=== PATIENT | female | born 1965 | race Caucasian/White ===

== ENCOUNTER 2023-10-10 16:42 | Observation (INO) | payer MEDICARE, BC ==
--- NOTE | 2023-10-10 16:47 | ERPHSYRPT ---
<BERNADETTE AGUILAR - Last Filed: 10/10/23 18:43> - History of Present Illness Time Seen by Provider: 10/10/23 16:47 Historian: patient Exam Limitations: no limitations Physician History: This is an obese 58-year-old white female patient who has had intermittently sharp pain associated with constant pressure over the last week. Patient states that the pain occasionally radiates into her upper back neck and right jaw. The chest pain occurs at rest. She is an occasional smoker of cigarettes. She has never been diagnosed with coronary artery disease. She took a half of Percocet 5/325 at noon today. Patient has a history of hyperlipidemia, asthma and hypertension. Patient sees a weave room supervisor, Dr. Johnston, on 10/12/2023. Timing/Duration: week(s) (1) Activities at Onset: none, rest Quality: pressure, sharpness Location: substernal, central Chest Pain Radiation: jaw, neck, back Severity of Pain-Max: mild Severity of Pain-Current: mild Modifying Factors: Improves With: nothing Associated Symptoms: shortness of breath Prior Chest Pain/Cardiac Workup: no prior chest pain, no prior cardiac workup Nitro Today/Relief: no nitro taken today Aspirin Treatment Today: provided at home Allergies/Adverse Reactions: No Known Drug Allergies Allergy (Unverified 10/10/23 16:44) Home Medications: Albuterol 8 gm Mdi Hfa [Ventolin Hfa MDI] 2 puffs IH Q4HPRN PRN 10/10/23 [History] Amlodipine Besylate 5 mg [Norvasc 5 mg] 5 mg PO DAILY 10/10/23 [History] Atenolol 50 mg [Tenormin 50 mg] 50 mg PO DAILY 10/10/23 [History] Losartan Potassium 100 mg PO DAILY 10/10/23 [History] Oxycodone HCl/Acetaminophen [Oxycodone-Acetaminophen 5-325] 1 tab PO Q6HPRN PRN 10/10/23 [History] Pravastatin Sodium 10 mg PO HS 10/10/23 [History] hydroCHLOROthiazide [Hydrochlorothiazide] 12.5 mg PO DAILY 10/10/23 [History] Travel Risk - International Travel Have you traveled outside of the country in past 3 weeks: No - Coronavirus Screening Are you exhibiting any of the following symptoms?: No Close contact with a COVID-19 positive Pt in past 14-21 Days: No - Review of Systems Constitutional: No Symptoms Eyes: No Symptoms Ears, Nose, & Throat: No Symptoms Respiratory: No Symptoms Cardiac: Chest Pain Abdominal/Gastrointestinal: No Symptoms Genitourinary Symptoms: No Symptoms Musculoskeletal: No Symptoms Skin: No Symptoms Neurological: No Symptoms Psychological: No Symptoms Endocrine: No Symptoms Hematologic/Lymphatic: No Symptoms Immunological/Allergic: No Symptoms All Other Systems: Reviewed and Negative - Past Medical History Pertinent Past Medical History: Yes - Past Surgical History Past Surgical History: Yes - Physical Exam General Appearance: no apparent distress, alert, anxiety, obese Eye Exam: PERRL/EOMI, eyes nml inspection Ears, Nose, Throat Exam: normal ENT inspection, moist mucous membranes Neck Exam: normal inspection, non-tender, supple, full range of motion Respiratory Exam: normal breath sounds, chest tenderness, lungs clear, airway intact, No respiratory distress Cardiovascular Exam: regular rate/rhythm, normal heart sounds, normal peripheral pulses Gastrointestinal/Abdomen Exam: soft, normal bowel sounds, No tenderness Pelvic Exam: not done Rectal Exam: not done Back Exam: normal inspection, normal range of motion, No CVA tenderness Extremity Exam: normal inspection, normal range of motion, pelvis stable Neurologic Exam: alert, oriented x 3, cooperative, 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 I do not appreciate any ST elevation in any leads.) - Progress Progress: improved, re-examined Air Movement: good Progress Note: 10/10/23 17:44 This patient's medical issue is 1 of moderate complexity. Level complex in the workup performed is based on review of the patient's past medical history, review of the patient's medication list, review the patient's drug allergy list, history present illness and physical findings on examination. The workup in this patient includes placement of intravenous line, provide the patient with 81 mg oral aspirin x 2, nitroglycerin sublingually 0.4 mg x 1 twelve-lead EKG, troponin level, D-dimer level, CBC, CMP and chest x-ray. 10/10/23 18:43 This patient's care is being transferred to Dr. Shan Stovall at shift change. H e will follow-up with the workup results and make final disposition. Counseled pt/family regarding: lab results, diagnosis, need for follow-up, rad results - Departure Departure Disposition: Home Clinical Impression: Nonspecific chest pain, Hiatal hernia Condition: Stable Critical Care Time: No Referrals: ANGEL MCCORMICK MD [Primary Care Provider] - Follow up/PCP as directed <SHAN STOVALL - Last Filed: 10/10/23 21:46> - Nursing Vital Signs Nursing Vital Signs: Initial Vital Signs Temperature 98 F 10/10/23 16:43 Pulse Rate 65 10/10/23 16:43 Respiratory Rate 16 10/10/23 16:43 Blood Pressure 179/102 10/10/23 16:43 O2 Sat by Pulse Oximetry 98 10/10/23 16:43 Pain Scale Pain Intensity 7 - CT Exams Chest CT Interpretation: Tele-radiologist Report (Small hiatal hernia otherwise normal CT PE exam) Ordered Tests: Active Orders 24 hr Category Date Time Status Brake Operator Sheet Metal STAT Care 10/10/23 17:11 Active EKG-ER Only STAT Care 10/10/23 17:10 Active IV Insertion STAT Care 10/10/23 17:10 Active Pulse Oximetry (ED) STAT Care 10/10/23 17:10 Active CHEST 1 VIEW (PORTABLE) Stat Exams 10/10/23 17:11 Taken CHEST WITH CONTRAST [CT] Stat Exams 10/10/23 18:05 Taken CBC W DIFF Stat Lab 10/10/23 16:50 Completed CMP Stat Lab 10/10/23 16:50 Completed D-DIMER QUANTITATIVE Stat Lab 10/10/23 16:50 Completed TROPONIN Q4H Lab 10/10/23 16:50 Completed TROPONIN Q4H Lab 10/10/23 20:37 Completed TROPONIN Q4H Lab 10/11/23 01:15 Ordered Transfer Order Routine Transfer 10/10/23 Ordered Medication Summary Discontinued Medications Generic Name Dose Route Start Last Admin Trade Name Freq PRN Reason Stop Dose Admin Aspirin 162 mg 10/10/23 17:46 10/10/23 18:06 Aspirin 81 Mg Tab.Chew PO 10/10/23 17:47 162 mg STAT ONE Administration Aspirin Confirm 10/10/23 18:04 Aspirin 81 Mg Tab.Chew Administered 10/10/23 18:05 Dose 162 mg .ROUTE .STK-MED ONE Sodium Chloride 500 mls @ 500 mls/hr 10/10/23 17:49 10/10/23 19:18 Sodium Chloride 0.9% 500 Ml IV 10/10/23 18:48 Infused .Q1H ONE Infusion Sodium Chloride Confirm 10/10/23 18:05 Sodium Chloride 0.9% 500 Ml Administered 10/10/23 18:06 Dose 500 mls @ ud IV .STK-MED ONE Nitroglycerin 0.4 mg 10/10/23 17:46 10/10/23 18:06 Nitroglycerin 0.4 Mg (Ed) 0.4 Mg Tab.Subl SL 10/10/23 17:47 0.4 mg STAT ONE Administration Nitroglycerin Confirm 10/10/23 18:04 Nitroglycerin 0.4 Mg (Ed) 0.4 Mg Tab.Subl Administered 10/10/23 18:05 Dose 0.4 mg SL .STK-MED ONE Nitroglycerin 1 gm 10/10/23 21:28 10/10/23 21:32 Nitroglycerin 1 Gm Packet TOP 10/10/23 21:29 1 gm STAT ONE Administration Nitroglycerin Confirm 10/10/23 21:32 Nitroglycerin 1 Gm Packet Administered 10/10/23 21:33 Dose 1 gm .ROUTE .STK-MED ONE Lab/Rad Data: Laboratory Result Diagrams 10/10/23 16:50 10/10/23 16:50 Laboratory Results 10/10/23 10/10/23 10/10/23 Range/Units 20:37 16:50 16:50 WBC (4.0-10.5) x10^3/uL RBC (4.1-5.4) x10^6/uL Hgb (12.0-16.0) g/dL Hct (35-47) % MCV (78-100) fL MCH (26-32) pg MCHC (32-36) g/dL RDW (11.5-14.0) % Plt Count (150-450) x10^3/uL MPV (7.5-11.0) fL Gran % (36.0-66.0) % Immature Gran % (Auto) (0.00-0.4) % Nucleat RBC Rel Count (0.00-0.1) % Eos # (Auto) (0-0.5) x10^3/uL Immature Gran # (Auto) (0.00-0.03) x10^3u/L Absolute Lymphs (auto) (1.0-4.6) x10^3/uL Absolute Monos (auto) (0.0-1.3) x10^3/uL Absolute Nucleated RBC (0.00-0.01) x10^3u/L Lymphocytes % (24.0-44.0) % Monocytes % (0.0-12.0) % Eosinophils % (0.00-5.0) % Basophils % (0.0-0.4) % Absolute Granulocytes (1.4-6.9) x10^3/uL Basophils # (0-0.4) x10^3/uL D-Dimer 0.58 H (0.0-0.50) mg/L Sodium (137-145) mmol/L Potassium (3.5-5.1) mmol/L Chloride (98-107) mmol/L Carbon Dioxide (22-30) mmol/L Anion Gap (5-15) MEQ/L BUN (7-17) mg/dL Creatinine (0.52-1.04) mg/dL Estimated GFR ML/MIN Glucose (74-106) mg/dL Calcium (8.4-10.2) mg/dL Total Bilirubin (0.2-1.3) mg/dL AST (14-36) U/L ALT (0-35) U/L Alkaline Phosphatase (38-126) U/L Troponin I < 0.012 < 0.012 (0.000-0.034) ng/mL Serum Total Protein (6.3-8.2) g/dL Albumin (3.5-5.0) g/dL 10/10/23 10/10/23 Range/Units 16:50 16:50 WBC 9.9 (4.0-10.5) x10^3/uL RBC 5.25 (4.1-5.4) x10^6/uL Hgb 14.1 (12.0-16.0) g/dL Hct 43.5 (35-47) % MCV 82.9 (78-100) fL MCH 26.9 (26-32) pg MCHC 32.4 (32-36) g/dL RDW 13.5 (11.5-14.0) % Plt Count 304 (150-450) x10^3/uL MPV 10.2 (7.5-11.0) fL Gran % 55.1 (36.0-66.0) % Immature Gran % (Auto) 0.2 (0.00-0.4) % Nucleat RBC Rel Count 0.0 (0.00-0.1) % Eos # (Auto) 0.19 (0-0.5) x10^3/uL Immature Gran # (Auto) 0.02 (0.00-0.03) x10^3u/L Absolute Lymphs (auto) 3.53 (1.0-4.6) x10^3/uL Absolute Monos (auto) 0.67 (0.0-1.3) x10^3/uL Absolute Nucleated RBC 0.00 (0.00-0.01) x10^3u/L Lymphocytes % 35.5 (24.0-44.0) % Monocytes % 6.7 (0.0-12.0) % Eosinophils % 1.9 (0.00-5.0) % Basophils % 0.6 (0.0-0.4) % Absolute Granulocytes 5.46 (1.4-6.9) x10^3/uL Basophils # 0.06 (0-0.4) x10^3/uL D-Dimer (0.0-0.50) mg/L Sodium 138 (137-145) mmol/L Potassium 3.8 (3.5-5.1) mmol/L Chloride 102 (98-107) mmol/L Carbon Dioxide 28 (22-30) mmol/L Anion Gap 11.7 (5-15) MEQ/L BUN 17 (7-17) mg/dL Creatinine 0.57 (0.52-1.04) mg/dL Estimated GFR 105.9 ML/MIN Glucose 121 H (74-106) mg/dL Calcium 10.6 H (8.4-10.2) mg/dL Total Bilirubin 0.30 (0.2-1.3) mg/dL AST 29 (14-36) U/L ALT 22 (0-35) U/L Alkaline Phosphatase 111 (38-126) U/L Troponin I (0.000-0.034) ng/mL Serum Total Protein 8.5 H (6.3-8.2) g/dL Albumin 4.5 (3.5-5.0) g/dL - Progress Progress Note: Patient endorsed to Dr. Stovall at approximately 7 PM. Troponin negative x 2. Patient reassessed. Patient continues to experience some chest discomfort with pain radiating to the right ear. Patient's heart score is a 4. We will admit for cardiac rule out. Case discussed with Dr. brown at 9:30 PM. Hospitalist accepts admission to observation. Plan of care discussed with patient. She agrees to admission at [facility] for further evaluation and treatment. Portions of this note were created with voice recognition technology. There may be grammatical, spelling, punctuation or sound alike errors 10/10/23 21:36 Blood Culture(s) Obtained: No Antibiotics given: No
[2023-10-10 17:15] LABS: Absolute Neutrophil Ct (ANC) 5.46 x10^3/uL (1.4-6.9); BASOPHIL % 0.6 % (0.0-0.4); Basophil (Absolute #) 0.06 x10^3/uL (0-0.4); Eosinophil % 1.9 % (0.00-5.0); Eosinophil (Absolute #) 0.19 x10^3/uL (0-0.5); Hematocrit 43.5 % (35-47); Hemoglobin 14.1 g/dL (12.0-16.0); IMMATURE GRAN # 0.02 x10^3u/L (0.00-0.03); IMMATURE GRAN % 0.2 % (0.00-0.4); Lymphocyte (Absolute #) 3.53 x10^3/uL (1.0-4.6); Lymphocytes % 35.5 % (24.0-44.0); Mean Cell Volume 82.9 fL (78-100); Mean Corpuscular Hemoglobin 26.9 pg (26-32); Mean Corpuscular Hgb Concent. 32.4 g/dL (32-36); Mean Platelet Volume 10.2 fL (7.5-11.0); Monocyte (Absolute #) 0.67 x10^3/uL (0.0-1.3); Monocytes % 6.7 % (0.0-12.0); Neutrophil % 55.1 % (36.0-66.0); Platelet Count 304 x10^3/uL (150-450); Red Blood Count 5.25 x10^6/uL (4.1-5.4); Red Cell Distribution Width 13.5 % (11.5-14.0); White Blood Count 9.9 x10^3/uL (4.0-10.5)
[2023-10-10 17:22] LABS: ALBUMIN 4.5 g/dL (3.5-5.0); ANION GAP 11.7 MEQ/L (5-15); BILIRUBIN,TOTAL 0.3 mg/dL (0.2-1.3); Calcium 10.6 mg/dL (8.4-10.2); Creatinine 1 0.57 mg/dL (0.52-1.04); EST GLOMERULAR FILTRATION RATE 105.9 ML/MIN; Potassium 3.8 mmol/L (3.5-5.1); Total Protein 8.5 g/dL (6.3-8.2)
[2023-10-10] MEDS ORDERED: BABY ASPIRIN 81 MG CHEW PO ONE (17:46)
[2023-10-10] MEDS ORDERED: Nitrostat 0.4 MG (ED) SL ONE ×2 (17:46→18:04)
[2023-10-10] MEDS ORDERED: Sodium Chloride 0.9% 500 ML 500 ML IV ONE ×2 (17:49→18:05)
[2023-10-10] MEDS ORDERED: BABY ASPIRIN 81 MG CHEW ONE (18:04)
[2023-10-10] MEDS ORDERED: NITRO-BID 2% UD PACKETS TOP ONE (21:28)
[2023-10-10] MEDS ORDERED: NITRO-BID 2% UD PACKETS ONE (21:32)
[2023-10-10] MEDS ORDERED: PERCOCET TABLET 5/325MG PO PRN (22:42)
[2023-10-10] MEDS ORDERED: Ventolin Hfa MDI IH PRN (22:42)
[2023-10-10] MEDS ORDERED: VENTOLIN COMMON CANISTER IH PRN (22:47)
[2023-10-10] MEDS ORDERED: Zofran 4 MG/2 ML VIAL IV PRN (22:51)
[2023-10-10] MEDS ORDERED: Docusate Sodium 100 MG PO PRN (22:51)
[2023-10-10] MEDS ORDERED: TYLENOL 325 MG PO PRN (22:51)
--- NOTE | 2023-10-10 22:59 | PCM.HP ---
History of Present Illness - Chief Complaint Chief Complaint: ACS, Chest pain Date: 10/10/23 History of Present Illness: is a 58 year old female with a history of HTN, asthma, and hyperlipidemia who has had intermittently sharp pain associated with constant pressure over the last week, with periodic radiation into her upper back neck and right jaw. The chest pain occurs at rest and is not reliably associated with exertion. Joshua has never been diagnosed with coronary artery disease and will have her first appointment with a transformation architect, Dr. Johnston, on 10/12/2023. She has not had a cardiac stress test in the last few years. She denies any leg edema, calf tenderness, or recent travel. - Review of Systems Constitutional: No Symptoms Eyes: No Symptoms Ears, Nose, & Throat: No Symptoms Respiratory: No Symptoms Cardiac: Chest Pain Abdominal/Gastrointestinal: No Symptoms Genitourinary Symptoms: No Symptoms Musculoskeletal: Arthralgias Skin: No Symptoms Neurological: No Symptoms Psychological: No Symptoms Endocrine: No Symptoms Hematologic/Lymphatic: No Symptoms Immunological/Allergic: No Symptoms All Other Systems: Reviewed and Negative Medications & Allergies Home Medications: Home Medication List Albuterol 8 gm Mdi Hfa [Ventolin Hfa MDI] 2 puffs IH Q4HPRN PRN 10/10/23 [History Confirmed 10/10/23] Amlodipine Besylate 5 mg [Norvasc 5 mg] 5 mg PO DAILY 10/10/23 [History Confirmed 10/10/23] Atenolol 50 mg [Tenormin 50 mg] 50 mg PO DAILY 10/10/23 [History Confirmed 10/10/23] Losartan Potassium 100 mg PO DAILY 10/10/23 [History Confirmed 10/10/23] Oxycodone HCl/Acetaminophen [Oxycodone-Acetaminophen 5-325] 1 tab PO Q6HPRN PRN 10/10/23 [History Confirmed 10/10/23] Pravastatin Sodium 10 mg PO HS 10/10/23 [History Confirmed 10/10/23] hydroCHLOROthiazide [Hydrochlorothiazide] 12.5 mg PO DAILY 10/10/23 [History Confirmed 10/10/23] Allergies/Adverse Reactions: Allergies Allergy/AdvReac Type Severity Reaction Status Date / Time No Known Drug Allergies Allergy Unverified 10/10/23 16:44 - Past Medical History Past Medical History: Yes Neurological History: No Pertinent History ENT History: No Pertinent History Cardiac History: High Cholesterol, Hypertension Respiratory History: Asthma Endocrine Medical History: No Pertinent History Musculoskelatal History: No Pertinent History GI Medical History: No Pertinent History History: No Pertinent History Pyscho-Social History: Bipolar Reproductive Disorders: No Pertinent History - Female History Are you now?: No - Past Surgical History Past Surgical History: Yes Neuro Surgical History: No Pertinent History Cardiac History: No Pertinent History Respiratory Surgery: No Pertinent History GI Surgical History: Appendectomy, Cholecystectomy Genitourinary Surgical Hx: No Pertinent History Musculskeletal Surgical Hx: Orthopedic Surgery Female Surgical History: Hysterectomy, Section Other Surgical History: left x2, right knee replacement - Social History Smoking Status: Current every day smoker Exposure to second hand smoke: Yes Alcohol: None Drug Use: none - Physical Exam Vital Signs: Vital Signs - 24 hr Temp Pulse Resp BP BP Pulse Ox 10/10/23 21:58 97.1 F 54 L 20 173/76 97 10/10/23 21:30 55 L 18 143/76 97 10/10/23 20:40 133/78 10/10/23 20:30 61 18 123/79 95 10/10/23 20:20 58 L 17 126/73 94 L 10/10/23 20:19 63 21 95 10/10/23 20:12 62 23 98 10/10/23 20:00 60 17 135/78 135/78 95 10/10/23 19:50 64 23 127/77 96 10/10/23 19:40 60 17 135/79 94 L 10/10/23 19:30 56 L 17 123/73 97 10/10/23 19:28 77 23 136/74 95 10/10/23 19:27 97 10/10/23 19:00 58 L 17 136/74 95 10/10/23 18:00 60 18 125/81 95 10/10/23 16:43 98 F 65 16 179/102 98 General Appearance: no apparent distress, alert Neurologic Exam: alert, oriented x 3, cooperative, 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, normal mood/affect, nml cerebellar function, nml station & gait Eye Exam: PERRL/EOMI, eyes nml inspection Ears, Nose, Throat Exam: normal ENT inspection Neck Exam: normal inspection, non-tender, supple, full range of motion Respiratory Exam: normal breath sounds, lungs clear Cardiovascular Exam: regular rate/rhythm, normal heart sounds Gastrointestinal/Abdomen Exam: soft, normal bowel sounds Back Exam: normal range of motion Extremity Exam: normal inspection, normal range of motion Skin Exam: normal color Results - Labs Lab/Micro Results: Lab Results-Last 24 Hours 10/10/23 10/10/23 10/10/23 Range/Units 16:50 16:50 16:50 WBC 9.9 (4.0-10.5) x10^3/uL RBC 5.25 (4.1-5.4) x10^6/uL Hgb 14.1 (12.0-16.0) g/dL Hct 43.5 (35-47) % MCV 82.9 (78-100) fL MCH 26.9 (26-32) pg MCHC 32.4 (32-36) g/dL RDW 13.5 (11.5-14.0) % Plt Count 304 (150-450) x10^3/uL MPV 10.2 (7.5-11.0) fL Gran % 55.1 (36.0-66.0) % Immature Gran % (Auto) 0.2 (0.00-0.4) % Nucleat RBC Rel Count 0.0 (0.00-0.1) % Eos # (Auto) 0.19 (0-0.5) x10^3/uL Immature Gran # (Auto) 0.02 (0.00-0.03) x10^3u/L Absolute Lymphs (auto) 3.53 (1.0-4.6) x10^3/uL Absolute Monos (auto) 0.67 (0.0-1.3) x10^3/uL Absolute Nucleated RBC 0.00 (0.00-0.01) x10^3u/L Lymphocytes % 35.5 (24.0-44.0) % Monocytes % 6.7 (0.0-12.0) % Eosinophils % 1.9 (0.00-5.0) % Basophils % 0.6 (0.0-0.4) % Absolute Granulocytes 5.46 (1.4-6.9) x10^3/uL Basophils # 0.06 (0-0.4) x10^3/uL D-Dimer 0.58 H (0.0-0.50) mg/L Sodium 138 (137-145) mmol/L Potassium 3.8 (3.5-5.1) mmol/L Chloride 102 (98-107) mmol/L Carbon Dioxide 28 (22-30) mmol/L Anion Gap 11.7 (5-15) MEQ/L BUN 17 (7-17) mg/dL Creatinine 0.57 (0.52-1.04) mg/dL Estimated GFR 105.9 ML/MIN Glucose 121 H (74-106) mg/dL Calcium 10.6 H (8.4-10.2) mg/dL Total Bilirubin 0.30 (0.2-1.3) mg/dL AST 29 (14-36) U/L ALT 22 (0-35) U/L Alkaline Phosphatase 111 (38-126) U/L Troponin I (0.000-0.034) ng/mL Serum Total Protein 8.5 H (6.3-8.2) g/dL Albumin 4.5 (3.5-5.0) g/dL 10/10/23 10/10/23 Range/Units 16:50 20:37 WBC (4.0-10.5) x10^3/uL RBC (4.1-5.4) x10^6/uL Hgb (12.0-16.0) g/dL Hct (35-47) % MCV (78-100) fL MCH (26-32) pg MCHC (32-36) g/dL RDW (11.5-14.0) % Plt Count (150-450) x10^3/uL MPV (7.5-11.0) fL Gran % (36.0-66.0) % Immature Gran % (Auto) (0.00-0.4) % Nucleat RBC Rel Count (0.00-0.1) % Eos # (Auto) (0-0.5) x10^3/uL Immature Gran # (Auto) (0.00-0.03) x10^3u/L Absolute Lymphs (auto) (1.0-4.6) x10^3/uL Absolute Monos (auto) (0.0-1.3) x10^3/uL Absolute Nucleated RBC (0.00-0.01) x10^3u/L Lymphocytes % (24.0-44.0) % Monocytes % (0.0-12.0) % Eosinophils % (0.00-5.0) % Basophils % (0.0-0.4) % Absolute Granulocytes (1.4-6.9) x10^3/uL Basophils # (0-0.4) x10^3/uL D-Dimer (0.0-0.50) mg/L Sodium (137-145) mmol/L Potassium (3.5-5.1) mmol/L Chloride (98-107) mmol/L Carbon Dioxide (22-30) mmol/L Anion Gap (5-15) MEQ/L BUN (7-17) mg/dL Creatinine (0.52-1.04) mg/dL Estimated GFR ML/MIN Glucose (74-106) mg/dL Calcium (8.4-10.2) mg/dL Total Bilirubin (0.2-1.3) mg/dL AST (14-36) U/L ALT (0-35) U/L Alkaline Phosphatase (38-126) U/L Troponin I < 0.012 < 0.012 (0.000-0.034) ng/mL Serum Total Protein (6.3-8.2) g/dL Albumin (3.5-5.0) g/dL - Radiology Impressions Radiology Exams & Impressions: Radiology Procedures Category Date Time Status CHEST 1 VIEW (PORTABLE) Stat Exams 10/10/23 17:11 Taken CHEST WITH CONTRAST [CT] Stat Exams 10/10/23 18:05 Taken Assessment/Plan (1) Nonspecific chest pain Current Visit: Yes Status: Acute Assessment & Plan: Serial enzymes on tele. Reports palpitations but no events on monitor or on EKG tracing. Has appointment with cardiology; would benefit from consideration of cardiac stress test due to risk factors. Will check TSH and Mag due to report of palpitations. Code(s): R07.9 - CHEST PAIN, UNSPECIFIED (2) Hypertension Current Visit: Yes Status: Acute Assessment & Plan: Continue home regimen and monitor BP trend. Code(s): I10 - ESSENTIAL (PRIMARY) HYPERTENSION (3) Hypercalcemia Current Visit: Yes Status: Acute Assessment & Plan: Reviewed previous available calcium levels on record here and they have all been normal. Mildly elevated. Recheck in AM. If elevated, could check ionized calcium. Further workup and monitoring as indicated. Code(s): E83.52 - HYPERCALCEMIA Telemedicine Encounter - Telemedicine Encounter Telemedicine Encounter: The entirety of this encounter was performed via Telemedicine"
[2023-10-10] MEDS ORDERED: Zocor 10MG ONE (23:01)
[2023-10-10] MEDS ORDERED: Zocor 10MG PO SCH ×2 (23:05→23:12)
[2023-10-11 02:28] LABS: ANION GAP 13.4 MEQ/L (5-15); Calcium 9.6 mg/dL (8.4-10.2); Creatinine 1 0.52 mg/dL (0.52-1.04); EST GLOMERULAR FILTRATION RATE 108.3 ML/MIN; Potassium 3.8 mmol/L (3.5-5.1)
[2023-10-11 03:36] LABS: Risk Ratio 6.6; TSH, 3RD Generation 1.3 mIU/L (0.47-4.68)
[2023-10-11 07:40] LABS: Hematocrit 41.6 % (35-47); Hemoglobin 13.1 g/dL (12.0-16.0); Mean Cell Volume 84.4 fL (78-100); Mean Corpuscular Hemoglobin 26.6 pg (26-32); Mean Corpuscular Hgb Concent. 31.5 g/dL (32-36); Mean Platelet Volume 10.8 fL (7.5-11.0); Platelet Count 292 x10^3/uL (150-450); Red Blood Count 4.93 x10^6/uL (4.1-5.4); Red Cell Distribution Width 13.8 % (11.5-14.0); White Blood Count 10.3 x10^3/uL (4.0-10.5)
--- NOTE | 2023-10-11 08:49 | XRAY ---
Indication: Chest pain. Elevated d-dimer. Multiple contiguous axial images obtained through the chest using 80 cc Isovue 370 contrast and PE protocol. Comparison: None Good opacification of the pulmonary arteries to include the lobar and segmental branches. No pulmonary embolus. Heart not enlarged. Aorta is normal in course and caliber. A few small left hilar calcified nodes. No pathologic mediastinal/hilar lymphadenopathy. Small hiatal hernia. Lungs hyperinflated with a few tiny left lung calcified granulomas. No suspicious pulmonary mass/nodule, infiltrate, effusion, or pneumothorax. Bony thorax intact with minimal degenerative changes throughout the spine. Also small T6/T7 Schmorl nodes. Limited upper abdomen demonstrates subcentimeter left lobe hepatic hemangioma and cholecystectomy clips. Impression: 1. Negative pulmonary embolus. No acute cardiopulmonary abnormalities. 2. Chronic findings including hiatal hernia, hepatic hemangioma, chronic bony findings, and old granulomatous disease.
--- NOTE | 2023-10-11 08:49 | XRAY ---
Indication: Chest pain. Comparison: None Portable chest demonstrates normal heart and lungs with a few left lung calcified granulomas. Bony thorax intact with osteopenia. Impression: Nonacute chest with chronic features.
--- NOTE | 2023-10-11 09:12 | PCM.NOTE ---
Date and Time: 10/11/2307 Subjective Assessment: is a 58 year old female with a history of HTN, asthma, and hyperlipidemia. She has had intermittently sharp pain associated with constant pressure over the last week, with periodic radiation into her upper back, neck, and right jaw. The chest pain occurs at rest and is not reliably associated with exertion. She has never been diagnosed with coronary artery disease and will have her first appointment with a high density press laborer, Dr. Johnston, on 10/12/2023. She has not had a cardiac stress test or echo in the last few years. She denies any leg edema, calf tenderness, or recent travel. D-dimer slightly elevated at 0.58 CT negative for PE. Chest XR shows hital hernia. Triglycerides elevated and fenofibrate started. She continues to have CP today in mid chest, worse with inspiration and activity. Pain continues to radiates into her neck, jaw, head, and back. Trop x3 negative. Echo and carotid US ordered for further evaluation. Cardiology consulted. She denies SOB, abd. pain, N/V/D. - Review of Systems Constitutional: No Fever, No Chills Eyes: No Symptoms Ears, Nose, & Throat: No Symptoms Respiratory: No Cough, No Short Of Breath Cardiac: Chest Pain, No Edema, No Syncope Abdominal/Gastrointestinal: No Abdominal Pain, No Nausea, No Vomiting, No Diarrhea Genitourinary Symptoms: No Dysuria Musculoskeletal: No Back Pain, No Neck Pain Skin: No Rash Neurological: No Dizziness, No Focal Weakness, No Sensory Changes Psychological: No Symptoms Endocrine: No Symptoms Hematologic/Lymphatic: No Symptoms Immunological/Allergic: No Symptoms Objective Exam General Appearance: no apparent distress, alert Neurologic Exam: alert, oriented x 3, cooperative, normal mood/affect, nml cerebellar function, sensation nml, No motor deficits Skin Exam: normal color, warm, dry Eye Exam: PERRL, EOMI, eyes nml inspection Ears, Nose, Throat Exam: normal ENT inspection, pharynx normal, moist mucous membranes Neck Exam: normal inspection, non-tender, supple, full range of motion Respiratory Exam: normal breath sounds, lungs clear, No respiratory distress Cardiovascular Exam: regular rate/rhythm, normal heart sounds Gastrointestinal/Abdomen Exam: soft, No tenderness, No mass Extremity Exam: normal inspection, normal range of motion Back Exam: normal inspection, normal range of motion, No CVA tenderness, No vertebral tenderness Pelvic Exam: deferred Rectal Exam: deferred OBJECTIVE DATA Vital Signs: Vital Signs - 24 hr Temp Pulse Resp BP BP Pulse Ox 10/11/23 07:09 50 L 14 94 L 10/11/23 06:53 98.7 F 56 L 16 142/80 96 10/11/23 04:00 97.8 F 52 L 18 129/70 97 10/11/23 00:48 51 L 16 94 L 10/10/23 23:03 97.6 F 54 L 20 124/70 96 10/10/23 21:58 97.1 F 54 L 20 173/76 97 10/10/23 21:30 55 L 18 143/76 97 10/10/23 20:40 133/78 10/10/23 20:30 61 18 123/79 95 10/10/23 20:20 58 L 17 126/73 94 L 10/10/23 20:19 63 21 95 10/10/23 20:12 62 23 98 10/10/23 20:00 60 17 135/78 135/78 95 10/10/23 19:50 64 23 127/77 96 10/10/23 19:40 60 17 135/79 94 L 10/10/23 19:30 56 L 17 123/73 97 10/10/23 19:28 77 23 136/74 95 10/10/23 19:27 97 10/10/23 19:00 58 L 17 136/74 95 10/10/23 18:00 60 18 125/81 95 10/10/23 16:43 98 F 65 16 179/102 98 Pain Assessment - Last Documented Pain Intensity 4 Pain Scale Used 0-10 Pain Scale Intake and Output: Intake & Output 10/08/23 10/09/23 10/10/23 10/11/23 11:59 11:59 11:59 11:59 Intake Total 400 Balance 400 Weight 91.3 kg Lab Results: Lab Results-Last 24 Hours 10/10/23 10/10/23 10/10/23 Range/Units 16:50 16:50 16:50 WBC 9.9 (4.0-10.5) x10^3/uL RBC 5.25 (4.1-5.4) x10^6/uL Hgb 14.1 (12.0-16.0) g/dL Hct 43.5 (35-47) % MCV 82.9 (78-100) fL MCH 26.9 (26-32) pg MCHC 32.4 (32-36) g/dL RDW 13.5 (11.5-14.0) % Plt Count 304 (150-450) x10^3/uL MPV 10.2 (7.5-11.0) fL Gran % 55.1 (36.0-66.0) % Immature Gran % (Auto) 0.2 (0.00-0.4) % Nucleat RBC Rel Count 0.0 (0.00-0.1) % Eos # (Auto) 0.19 (0-0.5) x10^3/uL Immature Gran # (Auto) 0.02 (0.00-0.03) x10^3u/L Absolute Lymphs (auto) 3.53 (1.0-4.6) x10^3/uL Absolute Monos (auto) 0.67 (0.0-1.3) x10^3/uL Absolute Nucleated RBC 0.00 (0.00-0.01) x10^3u/L Lymphocytes % 35.5 (24.0-44.0) % Monocytes % 6.7 (0.0-12.0) % Eosinophils % 1.9 (0.00-5.0) % Basophils % 0.6 (0.0-0.4) % Absolute Granulocytes 5.46 (1.4-6.9) x10^3/uL Basophils # 0.06 (0-0.4) x10^3/uL D-Dimer 0.58 H (0.0-0.50) mg/L Sodium 138 (137-145) mmol/L Potassium 3.8 (3.5-5.1) mmol/L Chloride 102 (98-107) mmol/L Carbon Dioxide 28 (22-30) mmol/L Anion Gap 11.7 (5-15) MEQ/L BUN 17 (7-17) mg/dL Creatinine 0.57 (0.52-1.04) mg/dL Estimated GFR 105.9 ML/MIN Glucose 121 H (74-106) mg/dL Hemoglobin A1c (4.5-6.0) % Calcium 10.6 H (8.4-10.2) mg/dL Magnesium (1.6-2.3) mg/dL Total Bilirubin 0.30 (0.2-1.3) mg/dL AST 29 (14-36) U/L ALT 22 (0-35) U/L Alkaline Phosphatase 111 (38-126) U/L Troponin I (0.000-0.034) ng/mL Serum Total Protein 8.5 H (6.3-8.2) g/dL Albumin 4.5 (3.5-5.0) g/dL Triglycerides (30-150) mg/dL Cholesterol (50-200) mg/dL LDL Cholesterol (30-100) mg/dL HDL Cholesterol (40-60) mg/dL Heart Disease Risk Ratio TSH 3rd Generation (0.47-4.68) mIU/L 10/10/23 10/10/23 10/11/23 Range/Units 16:50 20:37 02:11 WBC (4.0-10.5) x10^3/uL RBC (4.1-5.4) x10^6/uL Hgb (12.0-16.0) g/dL Hct (35-47) % MCV (78-100) fL MCH (26-32) pg MCHC (32-36) g/dL RDW (11.5-14.0) % Plt Count (150-450) x10^3/uL MPV (7.5-11.0) fL Gran % (36.0-66.0) % Immature Gran % (Auto) (0.00-0.4) % Nucleat RBC Rel Count (0.00-0.1) % Eos # (Auto) (0-0.5) x10^3/uL Immature Gran # (Auto) (0.00-0.03) x10^3u/L Absolute Lymphs (auto) (1.0-4.6) x10^3/uL Absolute Monos (auto) (0.0-1.3) x10^3/uL Absolute Nucleated RBC (0.00-0.01) x10^3u/L Lymphocytes % (24.0-44.0) % Monocytes % (0.0-12.0) % Eosinophils % (0.00-5.0) % Basophils % (0.0-0.4) % Absolute Granulocytes (1.4-6.9) x10^3/uL Basophils # (0-0.4) x10^3/uL D-Dimer (0.0-0.50) mg/L Sodium (137-145) mmol/L Potassium (3.5-5.1) mmol/L Chloride (98-107) mmol/L Carbon Dioxide (22-30) mmol/L Anion Gap (5-15) MEQ/L BUN (7-17) mg/dL Creatinine (0.52-1.04) mg/dL Estimated GFR ML/MIN Glucose (74-106) mg/dL Hemoglobin A1c (4.5-6.0) % Calcium (8.4-10.2) mg/dL Magnesium (1.6-2.3) mg/dL Total Bilirubin (0.2-1.3) mg/dL AST (14-36) U/L ALT (0-35) U/L Alkaline Phosphatase (38-126) U/L Troponin I < 0.012 < 0.012 < 0.012 (0.000-0.034) ng/mL Serum Total Protein (6.3-8.2) g/dL Albumin (3.5-5.0) g/dL Triglycerides (30-150) mg/dL Cholesterol (50-200) mg/dL LDL Cholesterol (30-100) mg/dL HDL Cholesterol (40-60) mg/dL Heart Disease Risk Ratio TSH 3rd Generation (0.47-4.68) mIU/L 10/11/23 10/11/23 10/11/23 Range/Units 02:11 02:11 02:11 WBC (4.0-10.5) x10^3/uL RBC (4.1-5.4) x10^6/uL Hgb (12.0-16.0) g/dL Hct (35-47) % MCV (78-100) fL MCH (26-32) pg MCHC (32-36) g/dL RDW (11.5-14.0) % Plt Count (150-450) x10^3/uL MPV (7.5-11.0) fL Gran % (36.0-66.0) % Immature Gran % (Auto) (0.00-0.4) % Nucleat RBC Rel Count (0.00-0.1) % Eos # (Auto) (0-0.5) x10^3/uL Immature Gran # (Auto) (0.00-0.03) x10^3u/L Absolute Lymphs (auto) (1.0-4.6) x10^3/uL Absolute Monos (auto) (0.0-1.3) x10^3/uL Absolute Nucleated RBC (0.00-0.01) x10^3u/L Lymphocytes % (24.0-44.0) % Monocytes % (0.0-12.0) % Eosinophils % (0.00-5.0) % Basophils % (0.0-0.4) % Absolute Granulocytes (1.4-6.9) x10^3/uL Basophils # (0-0.4) x10^3/uL D-Dimer (0.0-0.50) mg/L Sodium 137 (137-145) mmol/L Potassium 3.8 (3.5-5.1) mmol/L Chloride 103 (98-107) mmol/L Carbon Dioxide 25 (22-30) mmol/L Anion Gap 13.4 (5-15) MEQ/L BUN 15 (7-17) mg/dL Creatinine 0.52 (0.52-1.04) mg/dL Estimated GFR 108.3 ML/MIN Glucose 111 H (74-106) mg/dL Hemoglobin A1c 5.76 (4.5-6.0) % Calcium 9.6 (8.4-10.2) mg/dL Magnesium 2.0 (1.6-2.3) mg/dL Total Bilirubin (0.2-1.3) mg/dL AST (14-36) U/L ALT (0-35) U/L Alkaline Phosphatase (38-126) U/L Troponin I (0.000-0.034) ng/mL Serum Total Protein (6.3-8.2) g/dL Albumin (3.5-5.0) g/dL Triglycerides 444 H (30-150) mg/dL Cholesterol 188 (50-200) mg/dL LDL Cholesterol 93 (30-100) mg/dL HDL Cholesterol 28 L (40-60) mg/dL Heart Disease Risk Ratio 6.6 TSH 3rd Generation 1.300 (0.47-4.68) mIU/L 10/11/23 Range/Units 02:11 WBC 10.3 (4.0-10.5) x10^3/uL RBC 4.93 (4.1-5.4) x10^6/uL Hgb 13.1 (12.0-16.0) g/dL Hct 41.6 (35-47) % MCV 84.4 (78-100) fL MCH 26.6 (26-32) pg MCHC 31.5 L (32-36) g/dL RDW 13.8 (11.5-14.0) % Plt Count 292 (150-450) x10^3/uL MPV 10.8 (7.5-11.0) fL Gran % (36.0-66.0) % Immature Gran % (Auto) (0.00-0.4) % Nucleat RBC Rel Count (0.00-0.1) % Eos # (Auto) (0-0.5) x10^3/uL Immature Gran # (Auto) (0.00-0.03) x10^3u/L Absolute Lymphs (auto) (1.0-4.6) x10^3/uL Absolute Monos (auto) (0.0-1.3) x10^3/uL Absolute Nucleated RBC (0.00-0.01) x10^3u/L Lymphocytes % (24.0-44.0) % Monocytes % (0.0-12.0) % Eosinophils % (0.00-5.0) % Basophils % (0.0-0.4) % Absolute Granulocytes (1.4-6.9) x10^3/uL Basophils # (0-0.4) x10^3/uL D-Dimer (0.0-0.50) mg/L Sodium (137-145) mmol/L Potassium (3.5-5.1) mmol/L Chloride (98-107) mmol/L Carbon Dioxide (22-30) mmol/L Anion Gap (5-15) MEQ/L BUN (7-17) mg/dL Creatinine (0.52-1.04) mg/dL Estimated GFR ML/MIN Glucose (74-106) mg/dL Hemoglobin A1c (4.5-6.0) % Calcium (8.4-10.2) mg/dL Magnesium (1.6-2.3) mg/dL Total Bilirubin (0.2-1.3) mg/dL AST (14-36) U/L ALT (0-35) U/L Alkaline Phosphatase (38-126) U/L Troponin I (0.000-0.034) ng/mL Serum Total Protein (6.3-8.2) g/dL Albumin (3.5-5.0) g/dL Triglycerides (30-150) mg/dL Cholesterol (50-200) mg/dL LDL Cholesterol (30-100) mg/dL HDL Cholesterol (40-60) mg/dL Heart Disease Risk Ratio TSH 3rd Generation (0.47-4.68) mIU/L Radiology Exams: Radiology Procedures Category Date Time Status CAROTID BILATERAL [US] Routine Exams 10/11/23 08:47 Ordered CHEST 1 VIEW (PORTABLE) Stat Exams 10/10/23 17:11 Completed CHEST WITH CONTRAST [CT] Stat Exams 10/10/23 18:05 Completed ECHO W/2D AND DOPPLER [US] Routine Exams 10/11/23 08:47 Ordered Assessment/Plan (1) Nonspecific chest pain Current Visit: Yes Status: Acute Assessment & Plan: - Trop x3 negative - EKG's reviewed- some ST elevation and SR withy left ventricular hypertrophy seen in ER 1st EKG, 2nd repeat EKG showed no ST elevation but continued SR with left ventricular hypertrophy - Tele - TSH and Mg+ - WNL - Has an appointment with cardiology Sunday; would benefit from consideration of cardiac stress test due to risk factors. - Echo- pending - carotid duplex 10/11/23 Impression: Minimal right carotid arteriosclerotic plaquing. Widely patent left carotid circulation. Velocity measurements and ratios are negative for hemodynamically significant flow-limiting stenosis. - Pain increased with inspiration and activity - D- dimer 0.58- CT chest negative for PE - Chest XR negative except hital hernia - pantoprazole - ASA 81 mg daily - cardiology consult today - Consider tx to higher level of care. - pain improved with nitro in ER - no change in pain with nitro x1 today. Code(s): R07.9 - CHEST PAIN, UNSPECIFIED (2) Hiatal hernia Current Visit: Yes Status: Acute Assessment & Plan: - seen on XR and CT- chronic - may be causing sxs - Protonix Code(s): K44.9 - DIAPHRAGMATIC HERNIA WITHOUT OBSTRUCTION OR GANGRENE (3) Hypertension Current Visit: Yes Status: Acute Assessment & Plan: - stable - Cont home BP meds Code(s): I10 - ESSENTIAL (PRIMARY) HYPERTENSION (4) Hypercalcemia Current Visit: Yes Status: Acute Assessment & Plan: - resolved Code(s): E83.52 - HYPERCALCEMIA (5) Obesity (BMI 30-39.9) Current Visit: Yes Status: Acute Assessment & Plan: - advised heart healthy diet- discussed in detail since cholesterol is elevated - exercise control per cardiology recommendations Code(s): E66.9 - OBESITY, UNSPECIFIED (6) Mixed hyperlipidemia Current Visit: Yes Status: Acute Assessment & Plan: - Triglycerides 444 - HDL 28 - Continue Pravastatin - started Fenofibrate Code(s): E78.2 - MIXED HYPERLIPIDEMIA (7) Elevated d-dimer Current Visit: Yes Status: Acute Assessment & Plan: -D-Dimer 0.58 - CT with contrast negative for PE Code(s): R79.89 - OTHER SPECIFIED ABNORMAL FINDINGS OF BLOOD CHEMISTRY (8) Hepatic hemangioma Current Visit: Yes Status: Acute Assessment & Plan: - as seen on CT- chronic - F/u with PCP OP Code(s): D18.03 - HEMANGIOMA OF INTRA-ABDOMINAL STRUCTURES
[2023-10-11] MEDS ORDERED: NON-FORMULARY ITEM (Losartan Potassium [Losartan Potassium] 100 MG Tablet) PO SCH (10:00)
[2023-10-11] MEDS ORDERED: NON-FORMULARY ITEM (Hydrochlorothiazide [Hydrochlorothiazide] 12.5 MG Tablet) PO SCH (10:00)
[2023-10-11] MEDS ORDERED: hydroDIURIL 25 MG PO SCH (10:00)
[2023-10-11] MEDS ORDERED: ENOXAPARIN SODIUM SQ SCH (10:00)
[2023-10-11] MEDS ORDERED: NORVASC 5 MG PO SCH (10:00)
[2023-10-11] MEDS ORDERED: TENORMIN 50 MG PO SCH (10:00)
[2023-10-11] MEDS ORDERED: Protonix 40MG Tablet PO SCH (10:00)
[2023-10-11] MEDS ORDERED: Tricor 145 MG PO SCH (10:00)
[2023-10-11] MEDS ORDERED: ECOTRIN 81 MG PO SCH (10:00)
[2023-10-11] MEDS ORDERED: BABY ASPIRIN 81 MG CHEW PO SCH (10:00)
[2023-10-11] MEDS ORDERED: Ecotrin 325 MG PO SCH (10:00)
[2023-10-11] MEDS ORDERED: Cozaar 50 MG PO SCH (10:00)
--- NOTE | 2023-10-11 10:59 | XRAY ---
Indication: Chest pain. Two-dimensional sonogram and color Doppler imaging carotid arteries of the neck performed. Comparison: None Examination right carotid circulation demonstrates minimal calcified plaquing carotid bulb. Remaining common carotid, internal carotid, and external carotid arteries are widely patent. PSV CCA is 53 cm/s. PSV ICA is 60 cm/s. ICA/CCA ratio is 1.1. Normal antegrade vertebral artery flow. Examination left carotid circulation demonstrates widely patent common carotid, carotid bulb, internal carotid, and external carotid arteries. PSV CCA is 72 cm/s. PSV ICA is 85 cm/s. ICA/CCA ratio is 1.2. Normal antegrade vertebral artery flow. Impression: Minimal right carotid arteriosclerotic plaquing. Widely patent left carotid circulation. Velocity measurements and ratios are negative for hemodynamically significant flow-limiting stenosis.
[2023-10-11 11:04] VITALS: RESP 16
[2023-10-11] MEDS ORDERED: Nitrostat 0.4 MG Tablet SL PRN (11:19)
[2023-10-11 15:57] VITALS: BP 125/70; PULSE 54; TEMP 98.6; O2SAT 96
--- NOTE | 2023-10-11 17:05 | PCM.DS ---
Discharge Summary Date of Admission: 10/10/23 21:39 Date of Discharge: 10/11/23 Admitting Physician: SHRUTI RANKIN MD Consults: Consults on Case 10/11/23 11:16 Consult Cardiology ROUTINE Primary Care Provider: ANGEL MCCORMICK MD <SOLANGE ALAMO - Last Filed: 10/11/23 17:15> Date of Admission: 10/10/23 21:39 Date of Discharge: 10/11/23 Admitting Physician: SHRUTI RANKIN MD Consults: Consults on Case 10/11/23 11:16 Consult Cardiology ROUTINE Primary Care Provider: ANGEL MCCORMICK MD <YANA HENSON - Last Filed: 10/11/23 20:07> Allergies <SOLANGE ALAMO - Last Filed: 10/11/23 17:15> <YANA HENSON - Last Filed: 10/11/23 20:07> Allergies No Known Drug Allergies Allergy (Unverified 10/11/23 09:46) Hospital Summary - Hospital Course Hospital Course: is a 58 year old female with a history of HTN, asthma, and hyperlipidemia. She has had intermittently sharp pain associated with constant pressure over the last week, with periodic radiation into her upper back, neck, and right jaw. The chest pain occurs at rest and is not reliably associated with exertion. She has never been diagnosed with coronary artery disease and will have her first appointment with a bicycle repairer, Dr. Johnston, on 10/12/2023. She has not had a cardiac stress test or echo in the last few years. She denies any leg edema, calf tenderness, or recent travel. D-dimer slightly elevated at 0.58 CT negative for PE. Chest XR shows hital hernia. Triglycerides elevated and fenofibrate started. She continues to have CP today in mid chest, worse with inspiration and activity. Pain continues to radiates into her neck, jaw, head, and back. Trop x3 negative. Echo and carotid US ordered for further evaluation. Cardiology consulted and ok with discharge today and f/u in AM with cardiology as scheduled. Tele-cardiology recommends ASA 81mg daily a chemical stress test as pt is unable to participate in a treadmill test. She denies SOB, abd. pain, N/V/D. After discussion of meds with bicycle repairer she explained after the visit was over to the nurse Mauro that she had been taking OTC BC powder daily 4-5 times a day. BC powder has 845mg of ASA and 65mg of caffeine. I recommended she stop taking this medication as it may be causing her sxs. She may have some gastritis and may need an OP EGD if sxs continue. Will d/c with Protonix daily. She will need to also f/u with her PCP next week for further evaluation of her sxs. - Vitals & Intake/Output Vital Signs: Vital Signs Temperature 98.6 F 10/11/23 15:56 Pulse Rate 54 L 10/11/23 15:56 Respiratory Rate 16 10/11/23 15:56 Blood Pressure 125/70 10/11/23 15:56 O2 Sat by Pulse Oximetry 96 10/11/23 15:56 Intake & Output: Intake & Output 10/09/23 10/10/23 10/11/23 10/12/23 11:59 11:59 11:59 11:59 Intake Total 400 Balance 400 Weight 91.3 kg - Lab Result Diagrams: 10/11/23 02:11 10/11/23 02:11 Lab Results-Last 24 Hrs: Lab Results-Last 24 Hours 10/10/23 10/10/23 10/10/23 Range/Units 16:50 16:50 16:50 WBC 9.9 (4.0-10.5) x10^3/uL RBC 5.25 (4.1-5.4) x10^6/uL Hgb 14.1 (12.0-16.0) g/dL Hct 43.5 (35-47) % MCV 82.9 (78-100) fL MCH 26.9 (26-32) pg MCHC 32.4 (32-36) g/dL RDW 13.5 (11.5-14.0) % Plt Count 304 (150-450) x10^3/uL MPV 10.2 (7.5-11.0) fL Gran % 55.1 (36.0-66.0) % Immature Gran % (Auto) 0.2 (0.00-0.4) % Nucleat RBC Rel Count 0.0 (0.00-0.1) % Eos # (Auto) 0.19 (0-0.5) x10^3/uL Immature Gran # (Auto) 0.02 (0.00-0.03) x10^3u/L Absolute Lymphs (auto) 3.53 (1.0-4.6) x10^3/uL Absolute Monos (auto) 0.67 (0.0-1.3) x10^3/uL Absolute Nucleated RBC 0.00 (0.00-0.01) x10^3u/L Lymphocytes % 35.5 (24.0-44.0) % Monocytes % 6.7 (0.0-12.0) % Eosinophils % 1.9 (0.00-5.0) % Basophils % 0.6 (0.0-0.4) % Absolute Granulocytes 5.46 (1.4-6.9) x10^3/uL Basophils # 0.06 (0-0.4) x10^3/uL D-Dimer 0.58 H (0.0-0.50) mg/L Sodium 138 (137-145) mmol/L Potassium 3.8 (3.5-5.1) mmol/L Chloride 102 (98-107) mmol/L Carbon Dioxide 28 (22-30) mmol/L Anion Gap 11.7 (5-15) MEQ/L BUN 17 (7-17) mg/dL Creatinine 0.57 (0.52-1.04) mg/dL Estimated GFR 105.9 ML/MIN Glucose 121 H (74-106) mg/dL Hemoglobin A1c (4.5-6.0) % Calcium 10.6 H (8.4-10.2) mg/dL Magnesium (1.6-2.3) mg/dL Total Bilirubin 0.30 (0.2-1.3) mg/dL AST 29 (14-36) U/L ALT 22 (0-35) U/L Alkaline Phosphatase 111 (38-126) U/L Troponin I (0.000-0.034) ng/mL Serum Total Protein 8.5 H (6.3-8.2) g/dL Albumin 4.5 (3.5-5.0) g/dL Triglycerides (30-150) mg/dL Cholesterol (50-200) mg/dL LDL Cholesterol (30-100) mg/dL HDL Cholesterol (40-60) mg/dL Heart Disease Risk Ratio TSH 3rd Generation (0.47-4.68) mIU/L 10/10/23 10/10/23 10/11/23 Range/Units 16:50 20:37 02:11 WBC (4.0-10.5) x10^3/uL RBC (4.1-5.4) x10^6/uL Hgb (12.0-16.0) g/dL Hct (35-47) % MCV (78-100) fL MCH (26-32) pg MCHC (32-36) g/dL RDW (11.5-14.0) % Plt Count (150-450) x10^3/uL MPV (7.5-11.0) fL Gran % (36.0-66.0) % Immature Gran % (Auto) (0.00-0.4) % Nucleat RBC Rel Count (0.00-0.1) % Eos # (Auto) (0-0.5) x10^3/uL Immature Gran # (Auto) (0.00-0.03) x10^3u/L Absolute Lymphs (auto) (1.0-4.6) x10^3/uL Absolute Monos (auto) (0.0-1.3) x10^3/uL Absolute Nucleated RBC (0.00-0.01) x10^3u/L Lymphocytes % (24.0-44.0) % Monocytes % (0.0-12.0) % Eosinophils % (0.00-5.0) % Basophils % (0.0-0.4) % Absolute Granulocytes (1.4-6.9) x10^3/uL Basophils # (0-0.4) x10^3/uL D-Dimer (0.0-0.50) mg/L Sodium (137-145) mmol/L Potassium (3.5-5.1) mmol/L Chloride (98-107) mmol/L Carbon Dioxide (22-30) mmol/L Anion Gap (5-15) MEQ/L BUN (7-17) mg/dL Creatinine (0.52-1.04) mg/dL Estimated GFR ML/MIN Glucose (74-106) mg/dL Hemoglobin A1c (4.5-6.0) % Calcium (8.4-10.2) mg/dL Magnesium (1.6-2.3) mg/dL Total Bilirubin (0.2-1.3) mg/dL AST (14-36) U/L ALT (0-35) U/L Alkaline Phosphatase (38-126) U/L Troponin I < 0.012 < 0.012 < 0.012 (0.000-0.034) ng/mL Serum Total Protein (6.3-8.2) g/dL Albumin (3.5-5.0) g/dL Triglycerides (30-150) mg/dL Cholesterol (50-200) mg/dL LDL Cholesterol (30-100) mg/dL HDL Cholesterol (40-60) mg/dL Heart Disease Risk Ratio TSH 3rd Generation (0.47-4.68) mIU/L 10/11/23 10/11/23 10/11/23 Range/Units 02:11 02:11 02:11 WBC (4.0-10.5) x10^3/uL RBC (4.1-5.4) x10^6/uL Hgb (12.0-16.0) g/dL Hct (35-47) % MCV (78-100) fL MCH (26-32) pg MCHC (32-36) g/dL RDW (11.5-14.0) % Plt Count (150-450) x10^3/uL MPV (7.5-11.0) fL Gran % (36.0-66.0) % Immature Gran % (Auto) (0.00-0.4) % Nucleat RBC Rel Count (0.00-0.1) % Eos # (Auto) (0-0.5) x10^3/uL Immature Gran # (Auto) (0.00-0.03) x10^3u/L Absolute Lymphs (auto) (1.0-4.6) x10^3/uL Absolute Monos (auto) (0.0-1.3) x10^3/uL Absolute Nucleated RBC (0.00-0.01) x10^3u/L Lymphocytes % (24.0-44.0) % Monocytes % (0.0-12.0) % Eosinophils % (0.00-5.0) % Basophils % (0.0-0.4) % Absolute Granulocytes (1.4-6.9) x10^3/uL Basophils # (0-0.4) x10^3/uL D-Dimer (0.0-0.50) mg/L Sodium 137 (137-145) mmol/L Potassium 3.8 (3.5-5.1) mmol/L Chloride 103 (98-107) mmol/L Carbon Dioxide 25 (22-30) mmol/L Anion Gap 13.4 (5-15) MEQ/L BUN 15 (7-17) mg/dL Creatinine 0.52 (0.52-1.04) mg/dL Estimated GFR 108.3 ML/MIN Glucose 111 H (74-106) mg/dL Hemoglobin A1c 5.76 (4.5-6.0) % Calcium 9.6 (8.4-10.2) mg/dL Magnesium 2.0 (1.6-2.3) mg/dL Total Bilirubin (0.2-1.3) mg/dL AST (14-36) U/L ALT (0-35) U/L Alkaline Phosphatase (38-126) U/L Troponin I (0.000-0.034) ng/mL Serum Total Protein (6.3-8.2) g/dL Albumin (3.5-5.0) g/dL Triglycerides 444 H (30-150) mg/dL Cholesterol 188 (50-200) mg/dL LDL Cholesterol 93 (30-100) mg/dL HDL Cholesterol 28 L (40-60) mg/dL Heart Disease Risk Ratio 6.6 TSH 3rd Generation 1.300 (0.47-4.68) mIU/L 10/11/23 Range/Units 02:11 WBC 10.3 (4.0-10.5) x10^3/uL RBC 4.93 (4.1-5.4) x10^6/uL Hgb 13.1 (12.0-16.0) g/dL Hct 41.6 (35-47) % MCV 84.4 (78-100) fL MCH 26.6 (26-32) pg MCHC 31.5 L (32-36) g/dL RDW 13.8 (11.5-14.0) % Plt Count 292 (150-450) x10^3/uL MPV 10.8 (7.5-11.0) fL Gran % (36.0-66.0) % Immature Gran % (Auto) (0.00-0.4) % Nucleat RBC Rel Count (0.00-0.1) % Eos # (Auto) (0-0.5) x10^3/uL Immature Gran # (Auto) (0.00-0.03) x10^3u/L Absolute Lymphs (auto) (1.0-4.6) x10^3/uL Absolute Monos (auto) (0.0-1.3) x10^3/uL Absolute Nucleated RBC (0.00-0.01) x10^3u/L Lymphocytes % (24.0-44.0) % Monocytes % (0.0-12.0) % Eosinophils % (0.00-5.0) % Basophils % (0.0-0.4) % Absolute Granulocytes (1.4-6.9) x10^3/uL Basophils # (0-0.4) x10^3/uL D-Dimer (0.0-0.50) mg/L Sodium (137-145) mmol/L Potassium (3.5-5.1) mmol/L Chloride (98-107) mmol/L Carbon Dioxide (22-30) mmol/L Anion Gap (5-15) MEQ/L BUN (7-17) mg/dL Creatinine (0.52-1.04) mg/dL Estimated GFR ML/MIN Glucose (74-106) mg/dL Hemoglobin A1c (4.5-6.0) % Calcium (8.4-10.2) mg/dL Magnesium (1.6-2.3) mg/dL Total Bilirubin (0.2-1.3) mg/dL AST (14-36) U/L ALT (0-35) U/L Alkaline Phosphatase (38-126) U/L Troponin I (0.000-0.034) ng/mL Serum Total Protein (6.3-8.2) g/dL Albumin (3.5-5.0) g/dL Triglycerides (30-150) mg/dL Cholesterol (50-200) mg/dL LDL Cholesterol (30-100) mg/dL HDL Cholesterol (40-60) mg/dL Heart Disease Risk Ratio TSH 3rd Generation (0.47-4.68) mIU/L - Radiology Exams Ordered Rad Exams-Entire Visit: Radiology Procedures Category Date Time Status CAROTID BILATERAL [US] Routine Exams 10/11/23 08:47 Completed CHEST 1 VIEW (PORTABLE) Stat Exams 10/10/23 17:11 Completed CHEST WITH CONTRAST [CT] Stat Exams 10/10/23 18:05 Completed ECHO W/2D AND DOPPLER [US] Routine Exams 10/11/23 08:47 Taken - Procedures and Test Procedures and Tests throughout Hospitalization: Therapy Orders & Screens 10/11/23 00:47 Respiratory Therapy Assessment DAILY Comment: Diagnosis: ACS, Chest pain Smoking Cessation Education ONCE Comment: Diagnosis: ACS, Chest pain Smoking Status: Current every day smoker Do you dip or chew tobacco: No <SOLANGE ALAMO - Last Filed: 10/11/23 17:15> - Vitals & Intake/Output Vital Signs: Vital Signs Temperature 98.6 F 10/11/23 15:56 Pulse Rate 54 L 10/11/23 15:56 Respiratory Rate 16 10/11/23 15:56 Blood Pressure 125/70 10/11/23 15:56 O2 Sat by Pulse Oximetry 96 10/11/23 15:56 Intake & Output: Intake & Output 10/09/23 10/10/23 10/11/23 10/12/23 11:59 11:59 11:59 11:59 Intake Total 400 250 Balance 400 250 Weight 91.3 kg - Lab Result Diagrams: 10/11/23 02:11 10/11/23 02:11 Lab Results-Last 24 Hrs: Lab Results-Last 24 Hours 10/10/23 10/11/23 10/11/23 Range/Units 20:37 02:11 02:11 WBC (4.0-10.5) x10^3/uL RBC (4.1-5.4) x10^6/uL Hgb (12.0-16.0) g/dL Hct (35-47) % MCV (78-100) fL MCH (26-32) pg MCHC (32-36) g/dL RDW (11.5-14.0) % Plt Count (150-450) x10^3/uL MPV (7.5-11.0) fL Sodium 137 (137-145) mmol/L Potassium 3.8 (3.5-5.1) mmol/L Chloride 103 (98-107) mmol/L Carbon Dioxide 25 (22-30) mmol/L Anion Gap 13.4 (5-15) MEQ/L BUN 15 (7-17) mg/dL Creatinine 0.52 (0.52-1.04) mg/dL Estimated GFR 108.3 ML/MIN Glucose 111 H (74-106) mg/dL Hemoglobin A1c (4.5-6.0) % Calcium 9.6 (8.4-10.2) mg/dL Magnesium (1.6-2.3) mg/dL Troponin I < 0.012 < 0.012 (0.000-0.034) ng/mL Triglycerides (30-150) mg/dL Cholesterol (50-200) mg/dL LDL Cholesterol (30-100) mg/dL HDL Cholesterol (40-60) mg/dL Heart Disease Risk Ratio TSH 3rd Generation (0.47-4.68) mIU/L 10/11/23 10/11/23 10/11/23 Range/Units 02:11 02:11 02:11 WBC 10.3 (4.0-10.5) x10^3/uL RBC 4.93 (4.1-5.4) x10^6/uL Hgb 13.1 (12.0-16.0) g/dL Hct 41.6 (35-47) % MCV 84.4 (78-100) fL MCH 26.6 (26-32) pg MCHC 31.5 L (32-36) g/dL RDW 13.8 (11.5-14.0) % Plt Count 292 (150-450) x10^3/uL MPV 10.8 (7.5-11.0) fL Sodium (137-145) mmol/L Potassium (3.5-5.1) mmol/L Chloride (98-107) mmol/L Carbon Dioxide (22-30) mmol/L Anion Gap (5-15) MEQ/L BUN (7-17) mg/dL Creatinine (0.52-1.04) mg/dL Estimated GFR ML/MIN Glucose (74-106) mg/dL Hemoglobin A1c 5.76 (4.5-6.0) % Calcium (8.4-10.2) mg/dL Magnesium 2.0 (1.6-2.3) mg/dL Troponin I (0.000-0.034) ng/mL Triglycerides 444 H (30-150) mg/dL Cholesterol 188 (50-200) mg/dL LDL Cholesterol 93 (30-100) mg/dL HDL Cholesterol 28 L (40-60) mg/dL Heart Disease Risk Ratio 6.6 TSH 3rd Generation 1.300 (0.47-4.68) mIU/L - Radiology Exams Ordered Rad Exams-Entire Visit: Radiology Procedures Category Date Time Status CAROTID BILATERAL [US] Routine Exams 10/11/23 08:47 Completed CHEST 1 VIEW (PORTABLE) Stat Exams 10/10/23 17:11 Completed CHEST WITH CONTRAST [CT] Stat Exams 10/10/23 18:05 Completed ECHO W/2D AND DOPPLER [US] Routine Exams 10/11/23 08:47 Taken - Procedures and Test Procedures and Tests throughout Hospitalization: Therapy Orders & Screens 10/11/23 00:47 Respiratory Therapy Assessment DAILY Comment: Diagnosis: ACS, Chest pain Smoking Cessation Education ONCE Comment: Diagnosis: ACS, Chest pain Smoking Status: Current every day smoker Do you dip or chew tobacco: No <YANA HENSON - Last Filed: 10/11/23 20:07> Discharge Exam General Appearance: no apparent distress, mild distress, alert Neurologic Exam: alert, oriented x 3, cooperative, normal mood/affect, nml cerebellar function, sensation nml, No motor deficits Eye Exam: PERRL, EOMI, eyes nml inspection Ears, Nose, Throat Exam: normal ENT inspection, pharynx normal, moist mucous membranes Neck Exam: normal inspection, non-tender, supple, full range of motion Respiratory Exam: normal breath sounds, lungs clear, No respiratory distress Cardiovascular Exam: regular rate/rhythm, normal heart sounds Gastrointestinal/Abdomen Exam: soft, No tenderness, No mass Pelvic Exam: deferred Rectal Exam: deferred Back Exam: normal inspection, normal range of motion, No CVA tenderness, No vertebral tenderness Extremity Exam: normal inspection, normal range of motion Skin Exam: normal color, warm, dry <SOLANGE ALAMO - Last Filed: 10/11/23 17:15> Final Diagnosis/Problem List - Final Discharge Diagnosis/Problem (1) Nonspecific chest pain Status: Acute Code(s): R07.9 - CHEST PAIN, UNSPECIFIED (2) Hiatal hernia Status: Acute Code(s): K44.9 - DIAPHRAGMATIC HERNIA WITHOUT OBSTRUCTION OR GANGRENE (3) Hypertension Status: Acute Code(s): I10 - ESSENTIAL (PRIMARY) HYPERTENSION (4) Hypercalcemia Status: Acute Code(s): E83.52 - HYPERCALCEMIA (5) Obesity (BMI 30-39.9) Status: Acute Code(s): E66.9 - OBESITY, UNSPECIFIED (6) Mixed hyperlipidemia Status: Acute Code(s): E78.2 - MIXED HYPERLIPIDEMIA (7) Elevated d-dimer Status: Acute Code(s): R79.89 - OTHER SPECIFIED ABNORMAL FINDINGS OF BLOOD CHEMISTRY (8) Hepatic hemangioma Status: Acute Assessment & Plan: (1) Nonspecific chest pain Current Visit: Yes Status: Acute Assessment & Plan: - Trop x3 negative - EKG's reviewed- some ST elevation and SR withy left ventricular hypertrophy seen in ER 1st EKG, 2nd repeat EKG showed no ST elevation but continued SR with left ventricular hypertrophy - Tele - TSH and Mg+ - WNL - Has an appointment with cardiology Sunday; would benefit from consideration of cardiac stress test due to risk factors. - Echo- pending - carotid duplex 10/11/23 Impression: Minimal right carotid arteriosclerotic plaquing. Widely patent left carotid circulation. Velocity measurements and ratios are negative for hemodynamically significant flow-limiting stenosis. - Pain increased with inspiration and activity - D- dimer 0.58- CT chest negative for PE - Chest XR negative except hital hernia - pantoprazole - ASA 81 mg daily - cardiology consult today - Consider tx to higher level of care. - pain improved with nitro in ER - no change in pain with nitro x1 today. - STOP OTC BC powder Code(s): R07.9 - CHEST PAIN, UNSPECIFIED (2) Hiatal hernia Current Visit: Yes Status: Acute Assessment & Plan: - seen on XR and CT- chronic - may be causing sxs - Protonix Code(s): K44.9 - DIAPHRAGMATIC HERNIA WITHOUT OBSTRUCTION OR GANGRENE (3) Hypertension Current Visit: Yes Status: Acute Assessment & Plan: - stable - Cont home BP meds Code(s): I10 - ESSENTIAL (PRIMARY) HYPERTENSION (4) Hypercalcemia Current Visit: Yes Status: Acute Assessment & Plan: - resolved Code(s): E83.52 - HYPERCALCEMIA (5) Obesity (BMI 30-39.9) Current Visit: Yes Status: Acute Assessment & Plan: - advised heart healthy diet- discussed in detail since cholesterol is elevated - exercise control per cardiology recommendations Code(s): E66.9 - OBESITY, UNSPECIFIED (6) Mixed hyperlipidemia Current Visit: Yes Status: Acute Assessment & Plan: - Triglycerides 444 - HDL 28 - Continue Pravastatin - started Fenofibrate Code(s): E78.2 - MIXED HYPERLIPIDEMIA (7) Elevated d-dimer Current Visit: Yes Status: Acute Assessment & Plan: -D-Dimer 0.58 - CT with contrast negative for PE Code(s): R79.89 - OTHER SPECIFIED ABNORMAL FINDINGS OF BLOOD CHEMISTRY (8) Hepatic hemangioma Current Visit: Yes Status: Acute Assessment & Plan: - as seen on CT- chronic - F/u with PCP OP Code(s): D18.03 - HEMANGIOMA OF INTRA-ABDOMINAL STRUCTURES <SOLANGE ALAMO - Last Filed: 10/11/23 17:15> - Discharge Discharge Date: 10/11/23 <SOLANGE ALAMO - Last Filed: 10/11/23 17:15> <YANA HENSON - Last Filed: 10/11/23 20:07> - Discharge Disposition: Home, Self-Care Condition: Fair Prescriptions: New Aspirin EC 81 mg [Ecotrin 81 mg] 81 mg PO QAM 30 Days #30 tablet Nitroglycerin 0.4 mg Tablet [Nitrostat 0.4 MG Tablet] 0.4 mg SL PRN PRN 90 Days #180 PRN Reason: Chest Pain PANTOPRAZOLE 40 mg Tablet [Protonix 40MG Tablet] 40 mg PO DAILY 30 Days #30 tablet Fenofibrate,Micronized 145 mg* [Tricor 145 MG] 145 mg PO DAILY 30 Days #30 tablet Continue Oxycodone HCl/Acetaminophen [Oxycodone-Acetaminophen 5-325] 1 tab PO Q6HPRN PRN PRN Reason: Pain hydroCHLOROthiazide [Hydrochlorothiazide] 12.5 mg PO DAILY Pravastatin Sodium 10 mg PO HS Losartan Potassium 100 mg PO DAILY Atenolol 50 mg [Tenormin 50 mg] 50 mg PO DAILY Amlodipine Besylate 5 mg [Norvasc 5 mg] 5 mg PO DAILY Albuterol 8 gm Mdi Hfa [Ventolin Hfa MDI] 2 puffs IH Q4HPRN PRN PRN Reason: Shortness Of Breath Discontinued Aspirin/Caffeine [Bc Powder Packet] 4 - 5 each PO DAILY Instructions: Chest Pain (DC) Additional Instructions: Stop OTC BC powder Follow up with: ANGEL MCCORMICK MD [Primary Care Provider] - 1 Week (Please call tomorrow to make an appointment sometime next week with Dr Mccormick) Forms: Work/School Release Form LAXMI Encounter - LAXMI Encounter Attestation LAXMI Encounter Attestation: "BHAVNA Smith andhavediscussed pertinent aspects of their care with Solange Bradley-Rebeccateranoe agree with the history, physical exam (any modifications based on my personal exam will be noted below), assessment, and plan as outlined in original note. Please see immediately below for my summary of findings and additional assessment and plan along with any meaningful corrections/explanations to the Subjective/Objective portions of the LAXMI note will be noted." My portion of the encounter took place via telemedicine. <YANA HENSON - Last Filed: 10/11/23 20:07>
[2023-10-11] MEDS ORDERED: Zocor 10MG PO SCH (22:00)
[2023-10-11] MEDS ORDERED: NON-FORMULARY ITEM (Pravastatin Sodium [Pravastatin Sodium] 10 MG Tablet) PO SCH (22:00)
== END 2023-10-11 17:47 | disposition home or self-care (01) ==
LOC: ED 16:42 → MERGE 21:39 → MED SURG 21:39
PROVIDERS: ADMIT Internal Medicine; ATTEND Internal Medicine
DX: R07.9 Chest pain, unspecified (principal); K44.9 Diaphragmatic hernia without obstruction or gangrene; I10 Essential (primary) hypertension; E83.52 Hypercalcemia; E66.9 Obesity, unspecified; E78.2 Mixed hyperlipidemia; R79.89 Other specified abnormal findings of blood chemistry; D18.03 Hemangioma of intra-abdominal structures; J45.909 Unspecified asthma, uncomplicated; F17.200 Nicotine dependence, unspecified, uncomplicated; R26.81 Unsteadiness on feet; Z79.899 Other long term (current) drug therapy; Z20.828 Contact with and (suspected) exposure to other viral communicable diseases
CPT/HCPCS: 36000; 36415; 71045; 71260; 80048; 80053; 80061; 83036; 83721; 83735; 84443; 84484; 85025; 85027; 85379; 90791; 93005; 93041; 93306; 93880; 94760; 96360; 99284; G0378; Q3014; J1650; A9270-GY